=== PATIENT | male | born 1945 | race Native Hawaiian/Other Pacific Islander ===

== ENCOUNTER 2017-10-03 09:12 | Outpatient (CLI) | payer OTHER, MEDICARE | END 2017-10-03 19:20 | disposition home or self-care (01) | LOC: RAD 09:12 | DX: M05.79 Rheumatoid arthritis with rheumatoid factor of multiple sites without organ or systems involvement (principal); M18.0 Bilateral primary osteoarthritis of first carpometacarpal joints; Z79.52 Long term (current) use of systemic steroids ==

== ENCOUNTER 2017-10-05 09:31 | Outpatient (CLI) | payer OTHER, MEDICARE | END 2017-10-05 18:17 | disposition home or self-care (01) | LOC: US 09:31 | DX: L03.116 Cellulitis of left lower limb (principal); M85.89 Other specified disorders of bone density and structure, multiple sites ==

== ENCOUNTER 2017-10-21 09:54 | Outpatient (CLI) | payer OTHER, MEDICARE | END 2017-10-21 20:24 | disposition home or self-care (01) | LOC: LABW 09:54 | DX: M10.072 Idiopathic gout, left ankle and foot (principal) | CPT/HCPCS: 36415; 84550; 85651 ==

== ENCOUNTER 2018-01-10 13:33 | Outpatient (CLI) | payer OTHER, MEDICARE | END 2018-01-10 21:55 | disposition home or self-care (01) | LOC: LABW 13:33 | DX: M10.072 Idiopathic gout, left ankle and foot (principal) | CPT/HCPCS: 36415; 84550 ==

== ENCOUNTER 2018-01-19 10:56 | Outpatient (CLI) | payer OTHER, MEDICARE | END 2018-01-19 19:38 | disposition home or self-care (01) | LOC: US 10:56 | DX: L03.115 Cellulitis of right lower limb (principal) ==

== ENCOUNTER 2018-03-15 10:12 | Outpatient (CLI) | payer OTHER, MEDICARE ==
[2018-03-15 10:55] LABS: PLATELET COUNT 245 K/uL (142-355)
[2018-03-15 11:02] LABS: POTASSIUM 4.2 mmol/L (3.6-5.2)
== END 2018-03-15 23:55 | disposition home or self-care (01) ==
LOC: LABW 10:12
PROVIDERS: Physical Medicine & Rehabilitation Pain Medicine
DX: Z01.818 Encounter for other preprocedural examination (principal); Z22.322 Carrier or suspected carrier of Methicillin resistant Staphylococcus aureus; R79.1 Abnormal coagulation profile
CPT/HCPCS: 36415; 80048; 81000; 85027; 85610; 87070

== ENCOUNTER 2018-05-19 10:32 | Outpatient (CLI) | payer OTHER, MEDICARE ==
[2018-05-19 11:08] LABS: PLATELET COUNT 179 K/uL (142-355)
== END 2018-05-19 21:49 | disposition home or self-care (01) ==
LOC: LABW 10:32
PROVIDERS: Physical Medicine & Rehabilitation Pain Medicine
DX: Z01.818 Encounter for other preprocedural examination (principal); Z22.322 Carrier or suspected carrier of Methicillin resistant Staphylococcus aureus; R79.1 Abnormal coagulation profile
CPT/HCPCS: 36415; 80048; 81000; 85027; 85610; 87070

== ENCOUNTER 2018-10-19 09:57 | Outpatient (CLI) | payer OTHER, MEDICARE | END 2018-10-19 19:18 | disposition home or self-care (01) | LOC: MRI 09:57 | DX: R41.89 Other symptoms and signs involving cognitive functions and awareness (principal); H93.13 Tinnitus, bilateral; E78.1 Pure hyperglyceridemia; I49.9 Cardiac arrhythmia, unspecified ==

== ENCOUNTER 2019-05-06 11:23 | Emergency (ER) | payer OTHER, MEDICARE ==
[~2019-05-06] VITALS: Ht 177.8 cm; Wt 124.7 kg
[2019-05-06 11:28] VITALS: TEMP 98.6
[2019-05-06] MEDS ORDERED: METO-837 PO (11:51)
[2019-05-06] MEDS ORDERED: FURO20TA67 PO (11:51)
[2019-05-06] MEDS ORDERED: POTASSIUM99 MG PO (11:52)
[2019-05-06] MEDS ORDERED: MAGNESIUM250 M1 PO (11:55)
[2019-05-06] MEDS ORDERED: TURMERIC CURCUM1 CAP PO (11:55)
[2019-05-06] MEDS ORDERED: GARLIC1000 MG PO (11:56)
[2019-05-06] MEDS ORDERED: VITAMIN D50000 UNIT PO (11:57)
[2019-05-06 12:02] LABS: PLATELET COUNT 196 K/uL (142-355)
[2019-05-06 12:16] LABS: SODIUM 141 mmol/L (136-145)
[2019-05-06 12:19] LABS: PARTIAL THROMBOPLASTIN TIME 23.8 SECONDS (24.5-33.6)
[2019-05-06 13:30] VITALS: BP 144/90
== END 2019-05-06 13:30 | disposition short-term general hospital (02) ==
LOC: ED 11:23
PROVIDERS: Hospitalist
DX: R00.1 Bradycardia, unspecified (principal); T82.897A Other specified complication of cardiac prosthetic devices, implants and grafts, initial encounter; R06.02 Shortness of breath
CPT/HCPCS: 36415; 80053; 82550; 83880; 84484; 85027; 85610; 85730; 93005; 99285

== ENCOUNTER 2019-07-02 14:43 | Outpatient (CLI) | payer OTHER, MEDICARE ==
[~2019-07-02 14:43] MED LIST: FURO20TA67 PO; GARLIC1000 MG PO; MAGNESIUM250 M1 PO; METO-837 PO; POTASSIUM99 MG PO; TURMERIC CURCUM1 CAP PO; VITAMIN D50000 UNIT PO
[2019-07-02 15:11] LABS: POTASSIUM 4.1 mmol/L (3.6-5.2)
== END 2019-07-02 23:10 | disposition home or self-care (01) ==
LOC: LABW 14:43
PROVIDERS: Internal Medicine Cardiovascular Disease
DX: Z79.899 Other long term (current) drug therapy (principal)
CPT/HCPCS: 36415; 80048

== ENCOUNTER 2019-08-31 12:59 | Outpatient (CLI) | payer OTHER | END 2019-08-31 19:37 | disposition home or self-care (01) | LOC: CT 12:59 | DX: Z87.891 Personal history of nicotine dependence (principal) | CPT/HCPCS: G0297-TC ==

== ENCOUNTER 2019-12-14 15:57 | Emergency (ER) | payer OTHER, MEDICARE ==
[~2019-12-14] VITALS: Ht 180.3 cm; Wt 124.7 kg
[2019-12-14 15:58] VITALS: BP 143/67
[2019-12-14 16:51] VITALS: TEMP 99.8
[2019-12-14 16:53] LABS: PLATELET COUNT 160 K/uL (142-355)
[2019-12-14 16:56] LABS: POTASSIUM 4.2 mmol/L (3.6-5.2)
== END 2019-12-14 17:52 | disposition home or self-care (01) ==
LOC: ED 15:57
PROVIDERS: Family Medicine
DX: N39.0 Urinary tract infection, site not specified (principal); Z98.890 Other specified postprocedural states; R31.9 Hematuria, unspecified
CPT/HCPCS: 80053; 81000; 85027; 87088; 99283

== ENCOUNTER 2021-10-08 09:04 | Inpatient (IN) | payer OTHER ==
[2021-10-08] VITALS (8 sets, daily range): BP systolic 102–155; BP diastolic 52–76; TEMP 98.1–100.1; Ht 177.8 cm; Wt 128.0 kg
[~2021-10-08] VITALS: Ht 177.8 cm; Wt 128.0 kg
[~2021-10-08 09:04] MED LIST changes: -FURO20TA67 PO; +FUROSEMIDE40 MG PO; -MAGNESIUM250 M1 PO; +MP MAGNESIUM100 MG PO; -TURMERIC CURCUM1 CAP PO; +TURMERIC500 M1 PO
[2021-10-08 09:54] LABS: PLATELET COUNT 177 K/uL (142-355)
[2021-10-08 10:03] LABS: POTASSIUM 3.7 mmol/L (3.6-5.2)
[2021-10-08 10:05] LABS: PARTIAL THROMBOPLASTIN TIME 21.7 SECONDS (24.5-33.6)
[2021-10-08] MEDS ORDERED: TAMS0.4C PO (20:16)
[2021-10-09] VITALS: BP 126/68; TEMP 98
[2021-10-09 04:00] VITALS: BP 124/57; TEMP 97.7
[2021-10-09 08:00] VITALS: BP 141/61; TEMP 98.1
[2021-10-09 09:02] LABS: POTASSIUM 4.1 mmol/L (3.6-5.2)
[2021-10-09 09:06] LABS: PLATELET COUNT 141 K/uL (142-355)
[2021-10-09] MEDS ORDERED: TAMSULOSIN HYD0.4 MG PO (09:48)
[2021-10-09] MEDS ORDERED: OMEP40CA PO (09:49)
[2021-10-09] MEDS ORDERED: NATURAL ZINC50 MG PO (09:53)
[2021-10-09] MEDS ORDERED: IRON325 MG PO (09:54)
[2021-10-09] MEDS ORDERED: ONE DAILY MENS PO (09:55)
[2021-10-09] MEDS ORDERED: OCUVITE PO (09:55)
[2021-10-09] MEDS ORDERED: D350 MCG PO (09:56)
[2021-10-09] MEDS ORDERED: CALCIUM PO (09:57)
[2021-10-09 16:00] VITALS: BP 15/59; TEMP 98.2
[2021-10-09 20:00] VITALS: BP 131/65; TEMP 98.3
[2021-10-10 04:07] LABS: PLATELET COUNT 136 K/uL (142-355)
[2021-10-10 04:28] VITALS: BP 101/56; TEMP 97.5
[2021-10-10 08:00] VITALS: BP 111/62; TEMP 97
[2021-10-10 12:30] VITALS: BP 111/58; TEMP 97.7
[2021-10-10 16:30] VITALS: BP 119/63; TEMP 97.8
[2021-10-10 20:47] VITALS: BP 136/65; TEMP 97.6
[2021-10-10 23:51] VITALS: BP 118/47; TEMP 97.9
[2021-10-11 03:51] LABS: PLATELET COUNT 143 K/uL (142-355)
[2021-10-11 04:10] VITALS: BP 110/61; TEMP 97.5
[2021-10-11 08:30] VITALS: BP 124/51; TEMP 97.8
[2021-10-11] MEDS ORDERED: ZITHROMAX 250MG TAB PO ×2 (09:12)
[2021-10-11] MEDS ORDERED: PRED10TA27 PO (09:14)
[2021-10-11 12:30] VITALS: BP 131/59; TEMP 97.7
[2021-10-11 16:30] VITALS: BP 132/74; TEMP 97.7
[2021-10-11 20:40] VITALS: BP 132/66; TEMP 97.7
[2021-10-12 00:05] VITALS: BP 113/57; TEMP 97.6
[2021-10-12 04:14] VITALS: BP 115/63; TEMP 97.8
[2021-10-12 05:26] LABS: PLATELET COUNT 147 K/uL (142-355)
[2021-10-12 08:30] VITALS: BP 142/58; TEMP 97.7
== END 2021-10-12 12:10 | disposition home or self-care (01) | DRG 194 ==
LOC: ED 09:04 → MED/SURG 10:25
PROVIDERS: Hospitalist; ADMIT Internal Medicine; ATTEND Internal Medicine
DX: J18.8 Other pneumonia, unspecified organism (principal); J44.0 Chronic obstructive pulmonary disease with (acute) lower respiratory infection; I13.0 Hypertensive heart and chronic kidney disease with heart failure and stage 1 through stage 4 chronic kidney disease, or unspecified chronic kidney disease; J44.1 Chronic obstructive pulmonary disease with (acute) exacerbation; N40.0 Benign prostatic hyperplasia without lower urinary tract symptoms; K21.9 Gastro-esophageal reflux disease without esophagitis; Z99.81 Dependence on supplemental oxygen; I48.91 Unspecified atrial fibrillation; Z95.0 Presence of cardiac pacemaker; M15.8 Other polyosteoarthritis; N18.32 Chronic kidney disease, stage 3b
CPT/HCPCS: 36415; 36600; 43754; 80048; 80053; 80202; 82550; 82805; 83605; 83880; 84484; 85007; 85027; 85610; 85730; 87040; 87635; 93005; 94640; 94664; 94760; 96365; 96375; 99284; J1650; J1940; J2930; J3370; U0003

== ENCOUNTER 2022-05-30 05:48 | Observation (INO) | payer OTHER ==
[~2022-05-30] VITALS: Ht 177.8 cm; Wt 124.9 kg
[2022-05-30] VITALS (11 sets, daily range): BP systolic 98–131; BP diastolic 39–66; TEMP 98.4–102.6; Ht 177.8 cm; Wt 124.9 kg
[~2022-05-30 05:48] MED LIST changes: +CALCIUM PO; +D350 MCG PO; +IRON325 MG PO; +NATURAL ZINC50 MG PO; +OCUVITE PO; +OMEP40CA PO; +ONE DAILY MENS PO; +PRED10TA27 PO; +TAMS0.4C PO; +TAMSULOSIN HYD0.4 MG PO; +ZITHROMAX 250MG TAB PO
[2022-05-30 06:46] LABS: PLATELET COUNT 169 K/uL (142-355)
[2022-05-30 06:52] LABS: POTASSIUM 3.8 mmol/L (3.6-5.2)
[2022-05-30 06:59] LABS: PARTIAL THROMBOPLASTIN TIME 21.7 SECONDS (24.5-33.6)
[2022-05-30] MEDS ORDERED: METO50TA27 PO (14:18)
[2022-05-30] MEDS ORDERED: LISI10TA11 PO (14:19)
[2022-05-30] MEDS ORDERED: OMEP20CA PO (14:20)
[2022-05-31 03:56] VITALS: BP 121/51; TEMP 98.8
[2022-05-31 05:55] LABS: PLATELET COUNT 126 K/uL (142-355)
[2022-05-31 06:47] LABS: POTASSIUM 3.7 mmol/L (3.6-5.2)
[2022-05-31 08:00] VITALS: BP 108/56; TEMP 98
[2022-05-31 12:00] VITALS: BP 100/51; TEMP 98.5
[2022-05-31 16:00] VITALS: BP 114/56; TEMP 98.5
[2022-05-31 20:03] VITALS: BP 106/57; TEMP 98.5
[2022-06-01] VITALS: BP 123/64; TEMP 98.3
[2022-06-01 04:00] VITALS: BP 102/60; TEMP 97.8
[2022-06-01 07:54] VITALS: BP 110/60; TEMP 98
[2022-06-01] MEDS ORDERED: FUROSEMIDE40 MG PO (08:59)
[2022-06-01] MEDS ORDERED: MP MAGNESIUM100 MG PO (08:59)
[2022-06-01] MEDS ORDERED: TAMSULOSIN HYD0.4 MG PO (09:00)
[2022-06-01] MEDS ORDERED: CLIN300C PO (09:02)
[2022-06-01] MEDS ORDERED: NITROFURANTO100 MG PO (09:03)
[2022-06-01] MEDS ORDERED: ALBU90AE13 INH (09:04)
== END 2022-06-01 11:27 | disposition home or self-care (01) ==
LOC: ED 05:48 → MED/SURG 07:50
PROVIDERS: ADMIT Emergency Medicine; ATTEND Internal Medicine
DX: I13.0 Hypertensive heart and chronic kidney disease with heart failure and stage 1 through stage 4 chronic kidney disease, or unspecified chronic kidney disease (principal); J44.0 Chronic obstructive pulmonary disease with (acute) lower respiratory infection; J20.9 Acute bronchitis, unspecified; N18.31 Chronic kidney disease, stage 3a; I50.9 Heart failure, unspecified; J96.11 Chronic respiratory failure with hypoxia; N39.0 Urinary tract infection, site not specified; B96.20 Unspecified Escherichia coli [E. coli] as the cause of diseases classified elsewhere; I25.10 Atherosclerotic heart disease of native coronary artery without angina pectoris; I48.91 Unspecified atrial fibrillation; Z99.81 Dependence on supplemental oxygen; N40.0 Benign prostatic hyperplasia without lower urinary tract symptoms; Z95.0 Presence of cardiac pacemaker; K21.9 Gastro-esophageal reflux disease without esophagitis; M15.8 Other polyosteoarthritis; E83.42 Hypomagnesemia; E66.8 Other obesity; Z68.39 Body mass index [BMI] 39.0-39.9, adult
CPT/HCPCS: 36415; 80053; 81000; 82550; 83605; 83735; 83880; 84100; 84145; 84484; 85027; 85610; 85730; 87040; 87077; 87086; 87088; 87186; 87502; 87635; 93005; 94664; 94760; 96365; 96367; 96372; 96375; 99220; 99284; G0378; J1650; J1940; J3490; U0003

== ENCOUNTER 2023-03-01 09:40 | Observation (INO) | payer OTHER ==
[2023-03-01] VITALS (8 sets, daily range): BP systolic 91–109; BP diastolic 40–63; TEMP 97.8–98.6; Ht 177.8 cm; Wt 120.7 kg
[~2023-03-01] VITALS: Ht 177.8 cm; Wt 120.7 kg
[~2023-03-01 09:40] MED LIST changes: +ALBU90AE13 INH; +CLIN300C PO; +LISI10TA11 PO; +METO50TA27 PO; +NITROFURANTO100 MG PO; +OMEP20CA PO
[2023-03-01 10:01] LABS: PLATELET COUNT 154 K/uL (142-355)
[2023-03-01 10:10] LABS: POTASSIUM 4.7 mmol/L (3.6-5.2)
[2023-03-01 10:13] LABS: PARTIAL THROMBOPLASTIN TIME 26.6 SECONDS (23.9-36.7)
[2023-03-01] MEDS ORDERED: CARDURA4 MG PO (15:14)
[2023-03-01] MEDS ORDERED: CLARITIN10 M1 PO (15:15)
[2023-03-01] MEDS ORDERED: HYDR10TA47 PO (15:15)
[2023-03-01] MEDS ORDERED: [UNRECOGNIZED DRUG - REMARK] (15:19)
[2023-03-02 03:42] VITALS: BP 101/50; TEMP 98.5
[2023-03-02 06:02] LABS: POTASSIUM 4.4 mmol/L (3.6-5.2)
[2023-03-02 08:00] VITALS: BP 122/58; TEMP 98.4
== END 2023-03-02 12:01 | disposition home or self-care (01) ==
LOC: ED 09:40 → MED/SURG 12:22
PROVIDERS: ADMIT Family Medicine; ATTEND Internal Medicine
DX: I95.89 Other hypotension (principal); R11.0 Nausea; N40.0 Benign prostatic hyperplasia without lower urinary tract symptoms; I48.91 Unspecified atrial fibrillation; Z95.0 Presence of cardiac pacemaker; N18.32 Chronic kidney disease, stage 3b; Z87.891 Personal history of nicotine dependence; I12.9 Hypertensive chronic kidney disease with stage 1 through stage 4 chronic kidney disease, or unspecified chronic kidney disease; J98.4 Other disorders of lung
CPT/HCPCS: 36415; 80048; 80053; 82550; 84484; 85027; 85610; 85730; 93005; 94664; 94760; 96360; 96361; 96372; 96374; 99221; 99284; G0378; J1650; J2405